=== PATIENT | female | born 1925 | race Asian ===

== ENCOUNTER → 2017-03-14 | Outpatient (CLI) | payer OTHER ==
[~2017-03-14] MED LIST: ASPI-1198 PO; ASPI-989; BACL10TA PO; BACLOFEN; CARV25TA32; CARV25TA32 PO; CLOP75 PO; DULO60CA44 PO; ERGO400C PO; LYRICA; METF850T2 PO; MULT1CAP42 PO; NIFE30TA5 PO; OLME20TA20; OLME40 PO; PANT40TA25 PO; RANI150T7 PO; SIMV10TA6 PO; [UNRECOGNIZED DRUG - CODE] PO
== END | disposition home or self-care (01) ==
LOC: RADPV 10:29
PROVIDERS: ATTEND Internal Medicine
DX: M17.12 Unilateral primary osteoarthritis, left knee (principal); M25.862 Other specified joint disorders, left knee